=== PATIENT | male | born 1950 | race Caucasian/White ===

== ENCOUNTER → 2018-02-02 | Outpatient (CLI) | payer MEDICARE, OTHER ==
--- NOTE | 2018-02-02 16:09 | Diagnostic Imaging Report ---
Exam: Right knee 2 views History: Knee pain Comparison: None. Findings: No fracture or malalignment. Degenerative arthrosis of the knee, medial compartment predominant. Chondrocalcinosis. 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 Jackson Shultz M.D. on 02/02/2018 4:05 PM
== END ==
LOC: RAD 15:03
PROVIDERS: ATTEND Specialist
DX: M25.561 Pain in right knee (principal)

== ENCOUNTER 2019-03-16 08:53 | Observation (INO) | payer MEDICARE, OTHER ==
[~2019-03-16] VITALS: Ht 172.7 cm; Wt 85.3 kg
[~2019-03-16 08:53] MED LIST: FIBER LAXATIVE625 MG PO; FISH OIL 1,0001 EAC3 PO; LIPITOR20 MG PO; MELATONIN10 M1 PO; PEPCID20 MG PO; ROPIVACAINE 246.25 MG, EPINEPHRINE HCL 1:1000 1ML 0.5 MG, CLONIDINE HCL 0.08 MG, KETORO... INJ ONE; TURMERIC1 GM PO; TURMERIC538 MG PO
--- OUTSIDE RECORDS SUMMARY | 2019-03-16 08:59 | XMS REPORT ---
Author Author [facility] Address Unknown Phone Unavailable Care Team Providers Care Toll Bridge Operator Name Role Phone BONITALIZZIE ZIMMER Unavailable Unavailable Payers Payer Name Policy Type Policy Number Effective Date Expiration Date Problems This patient has no known problems. Allergies, Adverse Reactions, Alerts Allergy Name Allergy Type Status Severity Reaction(s) Onset Date Inactive Date Treating Clinician Comments No Known Allergies DA Active U 2011-01-18 00:00:00 Medications This patient has no known medications. Results Test Description Test Time Test Comments Text Results Atomic Results Result Comments TROPONIN-I RAPID 2018-06-12 01:04:00 TROPONIN-I RAPID (test code=TROPIRAP) 0.00 ng/mL 0.00-0.08 Per[facility] by [facility] coll[facility] mill [facility] Global Task Force with joint leadership from the EuropeanSociety of Cardiology (ESC), the [place] [employer] (ACCF), the [place] [employer] Association(AHA) and the World Heart Federation (WHF) refined past criteria of myocardial infarction (MN) with a universal definition of myocardial infarction that supports the use of cTnI as a preferred biomarker for myocardial injury. The universal definition of MN, according to this taskforce, is defined as a typical rise and gradual fall ofcardiac biomarkers (preferably troponin) with at least onevalue above the 99th percentile of the upper reference limit (URL) together with evidence of myocardial ischemia with at least one of the following:* ischemic symptoms,* pathological Q waves on electrocardiogram (ECG),* ischemic ECG changes,* or imaging evidence of new loss of viable myocardium or new regional wall motion abnormality. An elevated troponin value alone is not sufficient todiagnose a myocardial infarction. Rather, the patient sclinical presentation (history, physical exam) and ECGshould be used in conjunction with troponin in thediagnostic evaluation of suspected myocardial infarction. Aserial sampling protocol is recommended to facilitate the identification of temporal changes in troponin levels characteristic of MN. URINALYSIS [id number] 00:05:00* Test Item Value Reference Range Comments UA COLOR (test code=COLU) YELLOW YEL/STRAW UA APPEARANCE (test code=APPU) CLEAR CLEAR UA GLUCOSE DIPSTICK (test code=DGLUU) NEGATIVE NEGATIVE UA BILIRUBIN DIPSTICK (test code=BILU) NEGATIVE NEGATIVE UA KETONE DIPSTICK (test code=KETU) NEGATIVE NEGATIVE UA SPECIFIC GRAVITY (test code=SGU) 1.016 1.005-1.030 UA BLOOD DIPSTICK (test code=FANNY) NEGATIVE NEGATIVE UA PH DIPSTICK (test code=GOPAL) 6.0 5.0-7.0 UA PROTEIN DIPSTICK (test code=PROU) NEGATIVE NEGATIVE UA UROBILINIOGEN DIPSTICK (test code=URO) 0.2 mg/dL 0.2-1.0 UA NITRITE DIPSTICK (test code=BRAYAN) NEGATIVE NEGATIVE UA LEUKOCYTE ESTERASE DIPSTICK (test code=LEUU) NEGATIVE NEGATIVE UA WBC (test code=WBCU) 0-3 WBC/HPF 0-3 UA RBC (test code=RBCU) 4-10 RBC/HPF 0-3 UA BACTERIA (test code=BACU) NONE SEEN /HPF NONE SEEN UA SQUAMOUS CELLS (test code=SQU) NONE SEEN /HPF NONE SEEN UA MUCUS (test code=MUCU) TRACE /LPF NONE SEEN COMPREHENSIVE METABOLIC [id number] 23:46:00* Test Item Value Reference Range Comments SODIUM (test code=NA) 141 mEq/L 134-147 POTASSIUM (test code=K) 4.6 mEq/L 3.4-5.0 CHLORIDE (test code=CL) 107 mEq/L 100-108 CARBON DIOXIDE (test code=CO2) 29 mEq/L 21-33 ANION GAP (test code=GAP) 10 0-20 GLUCOSE (test code=GLU) 133 mg/dL 70-110 BLOOD UREA NITROGEN (test code=BUN) 27 mg/dL 7-18 GLOMERULAR FILTRATION RATE (test code=GFR) 84.7 80-90 Units of measure=ml/min/1.73 m2 CREATININE (test code=CREAT) 0.9 mg/dL 0.6-1.3 TOTAL PROTEIN (test code=PROT) 6.5 g/dL 6.4-8.2 ALBUMIN (test code=ALB) 3.80 g/dL 3.4-5.0 CALCIUM (test code=CA) 8.0 mg/dL 8.0-10.5 BILIRUBIN TOTAL (test code=BILT) 0.40 mg/dL 0.0-1.0 SGOT/AST (test code=AST) 18 IUnit/L 15-37 SGPT/ALT (test code=ALT) 28 IUnit/L 15-65 ALKALINE PHOSPHATASE TOTAL (test code=ALKP) 97 IUnit/L 20-125 [id number] 23:46:00* Test Item Value Reference Range Comments MAGNESIUM (test code=MAG) 2.00 mg/dL 1.8-2.4 [id number] 23:46:00* Test Item Value Reference Range Comments ALCOHOL (test code=ALC) 0.004 G/dL <0.003 Ethyl Alcohol Interpretation: 0.100 gm/dL - Legally Intoxicated 0.300-0.400 gm/dL - Severely Intoxicated >0.400 gm/dL - Potentially LethalResults are for Medical purposes only, and not for Legal orEmployment evaluation purposes. B-TYPE NATRIURETIC [id number] 23:42:00* Test Item Value Reference Range Comments B-TYPE NATRIURETIC PEPTIDE (test code=BNP) 11.2 PG/ML 0-100 - XR CHEST 1 [id number] 23:34:00 FAX: Umer Sanchez MD [phone] [place]: St: [facility] FAX: Ravinder Vanegas MD [phone] Name: CLYDE REGAN [facility] : 1950 Age/S: 67/M [address] [place] [address] Unit #: [id number] Loc: [address] [place] [id number] Phys: Umer Sanchez MD Acct: [id number] Dis Date: Status: REG ER PHONE #: [phone] Exam Date: 06/11/2018 2316 FAX #: [phone] Reason: near syncope EXAMS: CPT CODE: [id number] XR CHEST 1 V [id number] FRONTAL CHEST, 06/11/2018 11:00 PM : HISTORY: near syncope. COMPARISON: 04/12/2016 FINDINGS: Heart size and vascularity are within normal limits. Left base atelectasis and/or scarring. The lungs are clear of focal consolidation. No effusion, pneumothorax, or acute osseous abnormality. IMPRESSION: 1. No radiographic evidence of acute cardiopulmonary process. SL: ARY at 4819 Reported and signed by: Brennen Mayorga M.D. CC: Umer Sanchez MD; Ravinder Mullisn Technologist: RT Esteban(R) Trnscrd Date/Time/By: 06/11/2018 (4122) : By: [email or web address] Orig Print D/T: S: 0 06/11/2018 (8168) PAGE 1 Signed [facility] COMPREHENSIVE METABOLIC [id number] 23:28:00* Test Item Value Reference Range Comments SODIUM (test code=NA) 141 mEq/L 134-147 POTASSIUM (test code=K) 4.6 mEq/L 3.4-5.0 CHLORIDE (test code=CL) 107 mEq/L 100-108 CARBON DIOXIDE (test code=CO2) 29 mEq/L 21-33 ANION GAP (test code=GAP) 10 0-20 GLUCOSE (test code=GLU) 133 mg/dL 70-110 BLOOD UREA NITROGEN (test code=BUN) 27 mg/dL 7-18 GLOMERULAR FILTRATION RATE (test code=GFR) 84.7 80-90 Units of measure=ml/min/1.73 m2 CREATININE (test code=CREAT) 0.9 mg/dL 0.6-1.3 TOTAL PROTEIN (test code=PROT) g/dL 6.4-8.2 ALBUMIN (test code=ALB) 3.80 g/dL 3.4-5.0 CALCIUM (test code=CA) 8.0 mg/dL 8.0-10.5 BILIRUBIN TOTAL (test code=BILT) mg/dL 0.0-1.0 SGOT/AST (test code=AST) 18 IUnit/L 15-37 SGPT/ALT (test code=ALT) 28 IUnit/L 15-65 ALKALINE PHOSPHATASE TOTAL (test code=ALKP) IUnit/L 20-125 [id number] 23:28:00* Test Item Value Reference Range Comments MAGNESIUM (test code=MAG) 2.00 mg/dL 1.8-2.4 [id number] 23:28:00* Test Item Value Reference Range Comments ALCOHOL (test code=ALC) 0.004 G/dL <0.003 Ethyl Alcohol Interpretation: 0.100 gm/dL - Legally Intoxicated 0.300-0.400 gm/dL - Severely Intoxicated >0.400 gm/dL - Potentially LethalResults are for Medical purposes only, and not for Legal orEmployment evaluation purposes. [id number] 23:24:00* Test Item Value Reference Range Comments D-DIMER (test code=DDIMER) < 215 ng/mlFEU <=500 THROMBOSIS AND/OR PULMONARY EMBOLISM AND THE CLINICAL CUT- OFF VALUE FOR EXCLUSION (500 ng/mL FEU) OF THESE CONDITIONSIS VALIDATED BY THE ASSOCIATE PROGRAM MANAGER OF THE METHOD. A NEGATIVE D-DIMER RESULT WHEN COMBINED WITH A CLINICALASSESSMENT OF LOW PRETEST PROBABILITY HAS BEEN SHOWN TO HAVEA HIGH NEGATIVE PREDICTIVE VALUE OF DVT OR PE. D-DIMER VALUES >500 ng/mL FEU ARE NOT DIAGNOSTIC FOR DVT, PEor DIC WITHOUT OTHER CONFIRMATORY TESTS AND APPROPRIATECLINICAL EUALUATIONS. TROPONIN-I [id number] 23:22:00* Test Item Value Reference Range Comments TROPONIN-I RAPID (test code=TROPIRAP) 0.00 ng/mL 0.00-0.08 Performed by certified colloid mill operator [facility] Global Task Force with joint leadership from the EuropeanSociety of Cardiology (ESC), the [place] [employer] Foundation (ACCF), the [place] Heart Association(AHA) and the World Heart Federation (WHF) refined past criteria of myocardial infarction (MN) with a universal definition of myocardial infarction that supports the use of cTnI as a preferred biomarker for myocardial injury. The universal definition of MN, according to this taskforce, is defined as a typical rise and gradual fall ofcardiac biomarkers (preferably troponin) with at least onevalue above the 99th percentile of the upper reference limit (URL) together with evidence of myocardial ischemia with at least one of the following:* ischemic symptoms,* pathological Q waves on electrocardiogram (ECG),* ischemic ECG changes,* or imaging evidence of new loss of viable myocardium or new regional wall motion abnormality. An elevated troponin value alone is not sufficient todiagnose a myocardial infarction. Rather, the patient sclinical presentation (history, physical exam) and ECGshould be used in conjunction with troponin in thediagnostic evaluation of suspected myocardial infarction. Aserial sampling protocol is recommended to facilitate the identification of temporal changes in troponin levels characteristic of MN. LACTIC ACID [id number] 23:15:00* Test Item Value Reference Range Comments LACTIC ACID POC (test code=LACTP) 0.7 MMOL/L 0.90-1.70 Performed by certified colloid mill operator at [facility] CBC W/AUTO [id number] 23:12:00* Test Item Value Reference Range Comments WHITE BLOOD CELL (test code=WBC) 8.57 x10 3/uL 4.5-11.0 RED BLOOD CELL (test code=RBC) 4.80 x10 6/uL 4.00-5.60 HEMOGLOBIN (test code=HGB) 14.2 g/dL 12.5-16.9 HEMATOCRIT (test code=HCT) 44.9 % 37.5-50.7 MEAN CELL VOLUME (test code=MCV) 93.5 fL 81.0-99.0 MEAN CELL HGB (test code=MCH) 29.6 pg 27.0-33.0 MEAN CELL HGB CONCETRATION (test code=MCHC) 31.6 g/dL 33.0-37.0 RED CELL DISTRIBUTION WIDTH CV (test code=RDW) 13.8 % 11.5-14.5 RED CELL DISTRIBUTION WIDTH SD (test code=RDW-SD) 47.8 fL 37.0-54.0 PLATELET COUNT (test code=PLT) 260 x10 3/uL 150-400 MEAN PLATELET VOLUME (test code=MPV) 8.8 fL 7.0-9.0 NEUTROPHIL % (test code=NT%) 48.4 % 56.0-77.0 IMMATURE GRANULOCYTE % (test code=IG%) 0.5 % 0.0-2.0 LYMPHOCYTE % (test code=LY%) 42.5 % 14.0-32.0 MONOCYTE % (test code=MO%) 7.0 % 4.8-9.0 EOSINOPHIL % (test code=EO%) 1.1 % 0.3-3.7 BASOPHIL % (test code=BA%) 0.5 % 0.0-2.0 NUCLEATED RBC % (test code=NRBC%) 0.0 % 0-0 NEUTROPHIL # (test code=NT#) 4.16 x10 3/uL 2.0-7.6 IMMATURE GRANULOCYTE # (test code=IG#) 0.04 x10 3/uL 0.00-0.03 LYMPHOCYTE # (test code=LY#) 3.64 x10 3/uL 1.0-3.8 MONOCYTE # (test code=MO#) 0.60 x10 3/uL 0.1-0.8 EOSINOPHIL # (test code=EO#) 0.09 x10 3/uL 0.0-0.2 BASOPHIL # (test code=BA#) 0.04 x10 3/uL 0.0-0.2 NUCLEATED RBC # (test code=NRBC#) 0.00 x10 3/uL 0.0-0.1 MANUAL DIFF REQUIRED (test code=MDIFF) NO KNEE RIGHT THREE [id number] 16:04:00 [place] [address] Patient Name: CLYDE REGAN MR #: [id number] : 1950 Age/Sex: 67/M Req #: [id number] Adm Physician: Ordered by: LIZZIE MESA MD Report #: [id number] Location: [facility] Room/Bed: Procedure: [id number] DX/KNEE RIGHT THREE VIEWS Exam Date: 02/02/18 Exam Time: 1550 REPORT STATUS: Signed Exam: Right knee 2 views History: Knee pain Comparison: None. Findings: No fracture or malalignment. Degenerative arthrosis of the knee, medial compartment predominant. Chondrocalcinosis. 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 Zackary Urias M.D. on 02/02/2018 4:05 PM Dictated By: ZACKARY URIAS MD [id number] Transcribed By: OMAR on 02/02/18 1605 COPY TO: LIZZIE MESA MD
[2019-03-16] MEDS ORDERED: CELECOXIB 200 MG CAP ONE (09:22)
[2019-03-16] MEDS ORDERED: DEXAMETHASONE SOD PHOS 10 MG/1 ML VIAL ONE (09:22)
[2019-03-16] MEDS ORDERED: GABAPENTIN 300 MG CAP ONE (09:22)
[2019-03-16] MEDS ORDERED: CEFAZOLIN SOD 1 GM/NS 50ML 100 ML IV ONE (09:22)
[2019-03-16] MEDS ORDERED: VANCOMYCIN HCL 1,000 MG ONE (10:21)
[2019-03-16] MEDS ORDERED: BACITRACIN 50,000 UNIT VIAL ONE (10:21)
[2019-03-16] MEDS ORDERED: TRANEXAMIC ACID 1,000 MG/10 ML ML ONE (10:21)
[2019-03-16] MEDS ORDERED: SODIUM CHLORIDE 0.9% 500ML 500 ML ONE (10:22)
[2019-03-16] MEDS ORDERED: HYDROMORPHONE 1MG/1ML INJ ONE (11:35)
[2019-03-16] MEDS ORDERED: ONDANSETRON HCL INJ 2MG/ML 2ML 2 MG/ML VIAL IV PRN (12:30)
[2019-03-16] MEDS ORDERED: DOCUSATE SODIUM 100 MG CAP PO PRN (12:30)
[2019-03-16] MEDS ORDERED: DIPHENHYDRAMINE HCL INJ 50 MG/ML VIAL IM/IV PRN (12:30)
[2019-03-16] MEDS ORDERED: HYDROCODONE/APAP 7.5MG-325MG 1 EA TAB PO PRN (12:30)
[2019-03-16] MEDS ORDERED: KETOROLAC TROMETHAMINE 30 MG/ML VIAL IV PRN (12:30)
[2019-03-16] MEDS ORDERED: HYDROCODONE/APAP 5MG-325MG TAB PO PRN (12:30)
[2019-03-16] MEDS ORDERED: PROMETHAZINE HCL (IM) 25 MG/ML VIAL IM PRN (12:30)
[2019-03-16] MEDS ORDERED: ACETAMINOPHEN 650 MG SUPP PR PRN (12:30)
--- NOTE | 2019-03-16 13:22 | Diagnostic Imaging Report ---
EXAMINATION: KNEE RIGHT 1-2 VIEWS INDICATION: Postoperative COMPARISON: None FINDINGS: Portable AP and lateral radiographs demonstrate immediate postoperative findings of right total knee replacement. Alignment is anatomic. Nonobstructed fracture. Postoperative subcutaneous soft tissue emphysema. Small joint effusion. Surgical skin michoacano in place. IMPRESSION: Anatomic alignment status post right total knee replacement. Signed by: Pipe Sullivan MD on 03/16/2019 1:19 PM
[2019-03-16] MEDS ORDERED: KETOROLAC TROMETHAMINE 30 MG/ML VIAL ONE (14:09)
[2019-03-16] MEDS ORDERED: PROPOFOL IV EMULSION 10 MG/ML 20 ML VIAL ONE (14:09)
[2019-03-16] MEDS ORDERED: EPHEDRINE SULFATE INJ 50 MG/10 ML SYR ONE (14:09)
[2019-03-16] MEDS ORDERED: ACETAMINOPHEN 1000 MG/100 ML IV ONE (14:09)
[2019-03-16] MEDS ORDERED: DEXAMETHASONE SOD PHOS INJ 4 MG/ML VIAL ONE (14:09)
[2019-03-16] MEDS ORDERED: LIDOCAINE HCL 2% LOCAL INJ 5 ML SDV VIAL INJ ONE (14:09)
[2019-03-16] MEDS ORDERED: SEVOFLURANE INHAL SOLN 250 ML PEN BTL ONE (14:09)
[2019-03-16] MEDS ORDERED: ONDANSETRON HCL INJ 2MG/ML 2ML 2 MG/ML VIAL ONE (14:09)
[2019-03-16] MEDS ORDERED: BUPIVACAINE 0.25% 30ML SDV INJ ONE (14:30)
[2019-03-16 15:39] VITALS: BP 111/69
--- NOTE | 2019-03-16 15:40 | NUR ---
RECVD PATIENT FROM PACU, AAOx3 NO DISTRESS, RT KNEE DRESSING IS INTACT
[2019-03-16 16:05] VITALS: BP 111/69
--- NOTE | 2019-03-16 16:19 | Operative Report ---
DATE OF PROCEDURE: 03/16/2019 SURGEON: Curtis Dasilva MD ENTERTAINMENT & MEDIA CORRESPONDENT: Perez Ni PA-C. PREOPERATIVE DIAGNOSIS: Osteoarthritis, right knee. POSTOPERATIVE DIAGNOSIS: Osteoarthritis, right knee. PROCEDURE: Right total knee arthroplasty. INDICATIONS: The patient is a 68-year-old gentleman with end-stage arthritis of his right knee. He has failed conservative management and would like to proceed with a right knee replacement. The risks and benefits have been explained at length. All of his questions have been answered. He states he understands and wishes to proceed. PROCEDURE IN DETAIL: The patient was brought to the operating room and placed under general anesthetic. He received prophylactic antibiotics, a regional block and tranexamic acid in the holding area. His right lower extremity was prepped and draped in a sterile manner. A preoperative time-out was performed. A proximal tourniquet was inflated to 300 mmHg. An anterior approach with a medial parapatellar arthrotomy was performed. Clear synovial fluid was removed from the joint. Soft tissue releases were performed to bring the knee up into flexion with the patella everted. Meniscal remnants and marginal osteophytes were removed. Extensive wear of the medial compartment was noted. The cruciate ligaments were sacrificed. A [employer] Persona medial congruent knee system was used throughout the case. An extramedullary cutting guide was used to resect the proximal tibia. The tibial base plate was a size G. The central fin punch was drilled and impacted. Attention was directed towards the distal femur. An intramedullary cutting guide was used to resect the distal femur in 5 degrees of valgus and rotation referencing off a combination of landmarks including Whitesides line, the epicondylar axis and the posterior condyles. The femoral component was a size 10. The anterior and posterior cuts were made. Trial reductions were performed. A 10 mm medial congruent tibial insert provided appropriate soft tissue balancing in full extension and 90 degrees of flexion. The patella was resurfaced with a 32 mm x 8 mm patellar button. The thickness was checked before and after and was right around 23 mm. Patellar tracking was noted to be concentric. The trial implants were all removed. A 100 mL premixed pericapsular AILYN injection was placed into the surrounding soft tissue. The knee was thoroughly irrigated with a shower tip pulsatile lavage. All bone cuts had been irrigated with a spray mixture of diluted polymyxin and vancomycin spray. The components were cemented into place using a single mix of Biomet high viscosity cement preloaded with antibiotics. Care was taken to remove all extravasated cement. The wound was further irrigated while the cement cured. The arthrotomy was carefully closed with interrupted #1 Ethibond. The knee was put through flexion and extension to ensure a secure closure. The skin was closed with subcuticular Vicryl and michoacano. A sterile Aquacel bandage was applied. He was extubated and transported to the recovery room in stable condition. Blood loss was minimal. All needle and sponge counts were correct. Curtis Dasilva MD DR/TEZ /[id number]
[2019-03-16] MEDS: CELECOXIB 200 MG CAP PO SCH (16:58)
[2019-03-16] MEDS: ASPIRIN 325 MG TAB PO SCH (16:58)
[2019-03-16] MEDS ORDERED: CELECOXIB 100 MG CAP PO SCH (17:00)
[2019-03-16] MEDS: CEFAZOLIN SOD 1 GM/NS 50ML 50 ML IV SCH (17:42)
[2019-03-16] MEDS: ACETAMINOPHEN 1000 MG/100 ML IV SCH (18:22)
--- NOTE | 2019-03-16 19:15 | NUR ---
Completed BS nursing report with morning nurse. Pt alert and oriented to name. Lying in bed HOB 90 degrees. Denies pain at this time. Family/friend at bedside. Call santizo within reach. Will continue to monitor.
[2019-03-16] MEDS ORDERED: FENTANYL CITRATE/PF 100MCG/2 ML INJ ONE (19:32)
[2019-03-16] MEDS ORDERED: MORPHINE SULFATE INJ 10 MG/ML ONE (19:32)
[2019-03-16] MEDS ORDERED: MIDAZOLAM HCL 2 MG/2 ML VIAL ONE (19:32)
[2019-03-16 20:00] VITALS: BP 113/80
[2019-03-16 21:00] VITALS: BP 113/80
[2019-03-16] MEDS ORDERED: ZOLPIDEM TARTRATE 5 MG TAB PO PRN (21:00)
--- NOTE | 2019-03-16 21:40 | NUR ---
Pt tolerating CPM machine to right knee at 55 setting. Drsg C/D/I. Call santizo within reach.
[2019-03-16] MEDS: SODIUM CHLORIDE 0.9% 1000ML 1,000 ML IV SCH (22:16)
[2019-03-17] VITALS: BP 112/78
[2019-03-17] MEDS: CEFAZOLIN SOD 1 GM/NS 50ML 50 ML IV SCH ×2 (02:00→09:27)
[2019-03-17 04:00] VITALS: BP 130/78
[2019-03-17 05:38] LABS: HEMATOCRIT 37.1 % (38.2-49.6); HEMOGLOBIN 12.1 g/dL (14.0-18.0)
[2019-03-17] MEDS: ACETAMINOPHEN 1000 MG/100 ML IV SCH ×3 (06:00→12:00)
--- NOTE | 2019-03-17 07:20 | NUR ---
The pt. is awake and alert at bedside rounding with cpm intact and functioning. He denies pain currently stating level 1/10. PT is at bedside to work with the pt.
[2019-03-17 08:02] VITALS: BP 103/61
[2019-03-17 08:15] VITALS: BP 103/61
[2019-03-17] MEDS: SODIUM CHLORIDE 0.9% 1000ML 1,000 ML IV SCH (08:16)
--- NOTE | 2019-03-17 08:46 | NUR ---
EDUCATED ABOUT GAITAN, SIGNED, FILED IN CHART, WITH COPY LEFT WITH FAMILY AT BEDSIDE.
--- NOTE | 2019-03-17 09:05 | NUR ---
DR WHITE OFFICE PREARRANGED FOLLOWING DISCHARGE PLAN OF: [facility] [address] [address] CELL [phone] AND GF IS [phone] HOME HEALTH WITH [facility] CONFIRMED WITH [employer] [phone] DME 3 IN ONE COMMODE, CPM AND ROLLING WALKER WITH WHEELS. PROVIDED BY [employer] [place] [phone] GAITAN SIGNED AND ON CHART COPY LEFT WITH PATIENT GAVE CARD FOR QUESTIONS AND OR CONCERNS.
[2019-03-17] MEDS: CELECOXIB 200 MG CAP PO SCH (09:26)
[2019-03-17] MEDS: ASPIRIN 325 MG TAB PO SCH (09:26)
[2019-03-17 11:54] VITALS: BP 121/88
[2019-03-17] MEDS ORDERED: ACETAMINOPHEN 1000 MG/100 ML IV PRN (12:30)
--- NOTE | 2019-03-17 12:40 | NUR ---
The pt. has been released by therapy post third walk and deems the pt. okay for discharge home. He received discharge instructions, prescriptions and follow up information. He was escorted to private car via w/c and placed into the care of the s/o.
== END 2019-03-17 12:43 | disposition home health service (06) ==
LOC: OR 08:53 → PACU V 12:18 → MED/SURG 15:04
PROVIDERS: ADMIT Specialist; ATTEND Specialist
DX: M17.11 Unilateral primary osteoarthritis, right knee (principal); E78.00 Pure hypercholesterolemia, unspecified; K21.9 Gastro-esophageal reflux disease without esophagitis
CPT/HCPCS: 27447; 36415; 73560; 85014; 85018; 86850; 86900; 86920; 97116 ×2; 97161; 97530; G0378 ×2; J0131 ×2; J0171; J0690 ×2; J1100 ×2; J1170; J1885; J2001; J2250; J2270; J2405; J2704; J2795; J3010; J3370; J7030; J7040

== ENCOUNTER 2019-06-17 07:54 | Outpatient (RCR) | payer MEDICARE, OTHER ==
[~2019-06-17 07:54] MED LIST changes: -ROPIVACAINE 246.25 MG, EPINEPHRINE HCL 1:1000 1ML 0.5 MG, CLONIDINE HCL 0.08 MG, KETORO... INJ ONE
== END 2019-07-10 ==
LOC: PT 07:54
PROVIDERS: ATTEND Specialist
DX: Z96.651 Presence of right artificial knee joint (principal); M25.561 Pain in right knee; M25.661 Stiffness of right knee, not elsewhere classified; R26.2 Difficulty in walking, not elsewhere classified; M62.81 Muscle weakness (generalized)
CPT/HCPCS: 97139

== ENCOUNTER → 2022-01-04 | Day surgery (SDC) | payer MEDICARE, OTHER ==
[2022-01-03 11:00] LABS: BASOPHILS % 0.5 % (0.0-1.0); EOSINOPHILS # (AUTO) 0.2 (0.0-0.4); EOSINOPHILS % 2.4 % (0.0-6.0); HEMATOCRIT 45.7 % (38.2-49.6); HEMOGLOBIN 14.6 g/dL (14.0-18.0); LYMPHOCYTES # (AUTO) 2.8 (1.0-3.2); LYMPHOCYTES % 31.6 % (18.0-39.1); MEAN CORPUSCULAR HGB CONC 31.9 g/dL (31-35); MEAN CORPUSCULAR VOLUME 90.9 fL (81-99); MONOCYTES # (AUTO) 0.6 (0.2-0.8); MONOCYTES % 7.1 % (4.4-11.3); NEUTROPHILS # (AUTO) 5.2 (2.1-6.9); NEUTROPHILS % 58.3 % (38.7-80.0); PLATELET COUNT 247 x10e3/uL (140-360); RED BLOOD COUNT 5.03 x10e6/uL (4.3-5.7); RED CELL DISTRIBUTION WIDTH 13.8 % (11.7-14.4)
[2022-01-03 11:16] LABS: ANION GAP 14.7 mmol/L (8-16); BLOOD UREA NITROGEN 23 mg/dL (7-26); BUN/CREATININE RATIO 26 (6-25); CALCIUM 9.2 mg/dL (8.4-10.2); CARBON DIOXIDE 27 mmol/L (22-29); CHLORIDE 105 mmol/L (98-107); CREATININE, SERUM 0.87 mg/dL (0.72-1.25); GLUCOSE 95 mg/dL (74-118); POTASSIUM 4.7 mmol/L (3.5-5.1); SODIUM 142 mmol/L (136-145)
[~2022-01-04] MED LIST changes: +ACETAMINOPHEN 1000 MG/100 ML IV ONE; +ASPIRIN EC81 MG PO; +BUPIVACAINE 0.25% 30ML SDV ONE; +DEXAMETHASONE SOD PHOS INJ 4 MG/ML SDV ONE; +EPHEDRINE SULFATE INJ 50 MG/ML VIAL ONE; +FENTANYL CITRATE/PF 100MCG/2 ML INJ ONE; +MIDAZOLAM HCL 2 MG/2 ML VIAL ONE; +MULTI-VITAMIN1 EACH PO; +NEOSTIGMINE 1 MG/ML 10ML VIAL ONE; +ONDANSETRON HCL INJ 2MG/ML 2ML 2 MG/ML VIAL ONE; +POVIDONE IODINE 0.05% 0.05 % ML PO ONE; +PROPOFOL IV EMULSION 10 MG/ML 20 ML VIAL ONE; +SEVOFLURANE INHAL SOLN 250 ML PEN BTL ONE; +XYZAL5 MG PO
[2022-01-04 09:30] VITALS: BP 131/86
== END | disposition home or self-care (01) ==
LOC: OR 07:42
PROVIDERS: ATTEND Podiatrist Foot Surgery
DX: M20.11 Hallux valgus (acquired), right foot (principal); M77.8 Other enthesopathies, not elsewhere classified; M19.071 Primary osteoarthritis, right ankle and foot; K21.9 Gastro-esophageal reflux disease without esophagitis; R55 Syncope and collapse; E07.9 Disorder of thyroid, unspecified; Z01.810 Encounter for preprocedural cardiovascular examination; Z01.812 Encounter for preprocedural laboratory examination; Z01.818 Encounter for other preprocedural examination; Z20.822 Contact with and (suspected) exposure to COVID-19; Z79.82 Long term (current) use of aspirin; Z79.899 Other long term (current) drug therapy
CPT/HCPCS: 0223U; 28296; 36415; 71046; 80048; 85025; 93005; C1713 ×2; J0131; J0690; J1100; J2250; J2405; J2704; J2710; J3010; Q4100; 76000